=== PATIENT | female | born 1975 | race Two or more races ===

== ENCOUNTER 2018-10-06 17:25 | Emergency (ER) | payer OTHER ==
[~2018-10-06] VITALS: Ht 170.2 cm; Wt 63.5 kg
== END 2018-10-06 22:52 | disposition home or self-care (01) ==
LOC: ER 17:25
DX: K29.60 Other gastritis without bleeding (principal)

== ENCOUNTER 2024-11-23 19:25 | Emergency (ER) | payer OTHER ==
[~2024-11-23] VITALS: Ht 170.2 cm; Wt 81.6 kg
[2024-11-23] MEDS ORDERED: SYNTHROID125 MCG PO (20:45)
[2024-11-23] MEDS ORDERED: KETOROLAC TROMETHAMINE 60 MG VIAL IM ONE ×2 (22:45→22:46)
== END 2024-11-24 01:33 | disposition home or self-care (01) ==
LOC: ER 19:27
DX: S92.911A Unspecified fracture of right toe(s), initial encounter for closed fracture (principal); W22.03XA Walked into furniture, initial encounter; Y93.89 Activity, other specified; Y92.013 Bedroom of single-family (private) house as the place of occurrence of the external cause; E03.8 Other specified hypothyroidism
CPT/HCPCS: 73620; 96372; 99283; J1885